=== PATIENT | female | born 1965 | race Caucasian/White ===

== ENCOUNTER 2023-06-11 14:27 | Inpatient (IN) | payer OTHER ==
[~2023-06-11] VITALS: Ht 165.1 cm; Wt 64.4 kg
[2023-06-11] MEDS ORDERED: IOHEXOL-350 100 ML VIAL IV ONE (14:52)
[2023-06-11] MEDS ORDERED: IV NS 0.9% 250 ML IV ONE (14:52)
[2023-06-11] MEDS ORDERED: CT SWABBABLE VALVE TRANS SET 1 EA INFUS.SET MC ONE (14:52)
[2023-06-11 15:10] LABS: BASOPHILS % (AUTO) 0.3 % (0.0-2.0); EOSINOPHILS # (AUTO) 0.4 K/uL (0.0-0.7); EOSINOPHILS % (AUTO) 3.9 % (0.0-6.0); HEMATOCRIT 40 % (33-45); LYMPHOCYTES # (AUTO) 2.5 K/uL (0.8-4.8); LYMPHOCYTES % (AUTO) 26.7 % (20.0-44.0); MEAN CORPUSCULAR HEMOGLOBIN 29 PG (26.0-33.0); MEAN CORPUSCULAR HGB CONC 32 g/dl (31.0-36.0); MEAN CORPUSCULAR VOLUME 89 fL (82-100); MONOCYTES # (AUTO) 0.8 K/uL (0.1-1.30); MONOCYTES % (AUTO) 8.6 % (2.0-12.0); NEUTROPHILS # (AUTO) 5.7 K/uL (1.8-8.9); NEUTROPHILS % (AUTO) 60.5 % (43.0-81.0); PLATELET COUNT (AUTO) 429 K/uL (150-450); RED BLOOD CELL COUNT(AUTO) 4.56 MIL/uL (4.0-5.2); RED CELL DISTRIBUTION WIDTH 13.7 % (11.5-15.0); WHITE BLOOD COUNT (AUTO) 9.5 K/uL (4.3-11.0)
[2023-06-11 15:16] LABS: INR 0.95 (0.91-1.10); PARTIAL THROMBOPLASTIN TIME 30.2 SEC (24.3-34.3); PROTHROMBIN TIME 10.1 SECS (9.2-11.1)
[2023-06-11 15:19] LABS: ALANINE AMINOTRANSFERASE 50 U/L (12-78); ALBUMIN 3.2 g/dL (3.4-5.0); ALKALINE PHOSPHATASE 278 U/L (46-116); ASPARTATE AMINOTRANSFERASE 34 U/L (15-37); BILIRUBIN,DIRECT 0.1 mg/dL (0.0-0.2); BILIRUBIN,TOTAL 0.3 mg/dL (0.2-1.0); CALCIUM, SERUM 9.4 mg/dL (8.5-10.1); CARBON DIOXIDE 27 mmol/L (21-32); CHLORIDE 105 mmol/L (98-107); CREATININE 0.7 mg/dL (0.6-1.3); GLUCOSE 110 mg/dL (74-106); POTASSIUM 4.8 mmol/L (3.5-5.1); SODIUM SERUM 141 mmol/L (136-145); UREA NITROGEN, BLOOD 13 mg/dL (7-18)
[2023-06-11] MEDS ORDERED: POLY17PO4 PO (15:35)
[2023-06-11] MEDS ORDERED: SENN-18 PO (15:35)
[2023-06-11] MEDS ORDERED: ARIP5TAB10 PO (15:35)
[2023-06-11] MEDS ORDERED: OLAN5TAB3 PO (15:35)
[2023-06-11] MEDS ORDERED: MELA5TAB PO (15:35)
[2023-06-11] MEDS ORDERED: OLAN10VI IM (15:35)
[2023-06-11] MEDS ORDERED: MAGN400O6 PO (15:35)
[2023-06-11] MEDS ORDERED: NITR1PAT67 TD (15:35)
[2023-06-11] MEDS ORDERED: FOLI0.8T3 PO (15:35)
[2023-06-11] MEDS ORDERED: THIA100T74 PO (15:35)
[2023-06-11] MEDS ORDERED: TAMS-12 PO (15:35)
[2023-06-11] MEDS ORDERED: ACET-868 PO (15:35)
[2023-06-11] MEDS ORDERED: ENOX40DI SQ (15:35)
[2023-06-11 17:20] LABS: THYROID STIMULATING HORMONE 2.056 uIU/mL (0.358-3.74)
[2023-06-11 19:18] LABS: ACETAMINOPHEN <10 ug/ml (10-30); SALICYLATE 1.6 mg/dL (2.8-20.0)
[2023-06-11 19:27] LABS: ALCOHOL, BLOOD < 3 mg/dL (0-10)
[2023-06-11 19:38] LABS: APPEARANCE,URINE SLIGHTLY CLOUDY (CLEAR); BILIRUBIN,URINE NEGATIVE (NEGATIVE); BLOOD, URINE TRACE-INTA Ery/uL (NEGATIVE); COLOR,URINE YELLOW (YELLOW); KETONES,URINE NEGATIVE (NEGATIVE); LEUKOCYTE ESTERASE ,URINE 3+ (NEGATIVE); NITRITE, URINE NEGATIVE (NEGATIVE); PH,URINE 6.5 (5.0-8.0); PROTEIN,URINE NEGATIVE (NEGATIVE); UGLUCOSE NEGATIVE (NEGATIVE); UROBILINOGEN,URINE 0.2 EU/dL (0.2)
[2023-06-11 19:48] LABS: ADD URINE CULTURE YES; BACTERIA,URINE 1+ /HPF (None Seen)
[2023-06-11 20:30] VITALS: BP 130/76; TEMP 97.7; O2SAT 100
[2023-06-11] MEDS ORDERED: SIMVASTATIN 40 MG TABLET PO SCH (22:00)
[2023-06-11] MEDS ORDERED: CEFTRIAXONE 1GM BAG (ER ONLY) 50 ML IV ONE (22:21)
[2023-06-11] MEDS: CEFTRIAXONE 1 G in IV D5W 50 ML IV SCH (22:37)
[2023-06-11] MEDS: BLOOD SUGAR DIAGNOSTIC 1 EACH STRIP IN SCH (22:55)
[2023-06-12] VITALS: BP 112/91; TEMP 97.6; O2SAT 95
[2023-06-12 05:00] VITALS: BP 126/61; TEMP 99.1; O2SAT 99
[2023-06-12 06:37] LABS: BASOPHILS # (AUTO) 0.1 K/uL (0.0-0.2); BASOPHILS % (AUTO) 1.4 % (0.0-2.0); EOSINOPHILS # (AUTO) 0.4 K/uL (0.0-0.7); HEMATOCRIT 38 % (33-45); HEMOGLOBIN 12.3 g/dL (11.5-14.8); LYMPHOCYTES # (AUTO) 2.1 K/uL (0.8-4.8); LYMPHOCYTES % (AUTO) 27.9 % (20.0-44.0); MEAN CORPUSCULAR HEMOGLOBIN 29 PG (26.0-33.0); MEAN CORPUSCULAR HGB CONC 32 g/dl (31.0-36.0); MEAN CORPUSCULAR VOLUME 89 fL (82-100); MONOCYTES # (AUTO) 0.7 K/uL (0.1-1.30); MONOCYTES % (AUTO) 9.9 % (2.0-12.0); NEUTROPHILS # (AUTO) 4.2 K/uL (1.8-8.9); NEUTROPHILS % (AUTO) 55.8 % (43.0-81.0); PLATELET COUNT (AUTO) 391 K/uL (150-450); RED BLOOD CELL COUNT(AUTO) 4.27 MIL/uL (4.0-5.2); RED CELL DISTRIBUTION WIDTH 13.9 % (11.5-15.0); WHITE BLOOD COUNT (AUTO) 7.5 K/uL (4.3-11.0)
[2023-06-12] MEDS: BLOOD SUGAR DIAGNOSTIC 1 EACH STRIP IN SCH ×4 (06:49→22:27)
[2023-06-12 07:38] LABS: CREATININE 0.6 mg/dL (0.6-1.3); POTASSIUM 3.4 mmol/L (3.5-5.1)
[2023-06-12 08:00] VITALS: BP 113/58; TEMP 97.5; O2SAT 99
[2023-06-12] MEDS: ASPIRIN 81 MG TAB.CHEW PO SCH (09:20)
[2023-06-12] MEDS ORDERED: POTASSIUM CHLORIDE 20 MEQ TAB.PRT.SR PO SCH (11:00)
[2023-06-12 12:00] VITALS: BP 118/71; TEMP 99; O2SAT 96
[2023-06-12 16:00] VITALS: BP 137/75; TEMP 98.4; O2SAT 96
[2023-06-12 20:00] VITALS: BP 117/66; TEMP 98.8; O2SAT 100
[2023-06-12] MEDS: SIMVASTATIN 20 MG TABLET PO SCH (21:29)
[2023-06-12] MEDS: CEFTRIAXONE 1 G in IV D5W 50 ML IV SCH (22:27)
[2023-06-13] VITALS: BP 117/70; TEMP 98.5; O2SAT 99
[2023-06-13 04:00] VITALS: BP 131/63; TEMP 98.2; O2SAT 98
[2023-06-13 04:57] VITALS: BP 130/63; TEMP 98.2
[2023-06-13 05:57] LABS: BASOPHILS # (AUTO) 0.1 K/uL (0.0-0.2); BASOPHILS % (AUTO) 0.6 % (0.0-2.0); EOSINOPHILS # (AUTO) 0.4 K/uL (0.0-0.7); EOSINOPHILS % (AUTO) 3.5 % (0.0-6.0); HEMATOCRIT 40 % (33-45); HEMOGLOBIN 12.9 g/dL (11.5-14.8); LYMPHOCYTES # (AUTO) 1.9 K/uL (0.8-4.8); LYMPHOCYTES % (AUTO) 17.5 % (20.0-44.0); MEAN CORPUSCULAR HEMOGLOBIN 29 PG (26.0-33.0); MEAN CORPUSCULAR HGB CONC 32 g/dl (31.0-36.0); MEAN CORPUSCULAR VOLUME 89 fL (82-100); MONOCYTES % (AUTO) 9.4 % (2.0-12.0); NEUTROPHILS # (AUTO) 7.5 K/uL (1.8-8.9); PLATELET COUNT (AUTO) 389 K/uL (150-450); RED BLOOD CELL COUNT(AUTO) 4.47 MIL/uL (4.0-5.2); RED CELL DISTRIBUTION WIDTH 13.7 % (11.5-15.0); WHITE BLOOD COUNT (AUTO) 10.8 K/uL (4.3-11.0)
[2023-06-13 06:07] LABS: FOLIC ACID > 20.0 ng/mL (>3.0)
[2023-06-13 06:10] LABS: CREATININE 0.7 mg/dL (0.6-1.3); MAGNESIUM 1.9 mg/dL (1.8-2.4); PHOSPHORUS 4.4 mg/dL (2.5-4.9); POTASSIUM 3.4 mmol/L (3.5-5.1)
[2023-06-13] MEDS: BLOOD SUGAR DIAGNOSTIC 1 EACH STRIP IN SCH ×4 (06:37→21:59)
[2023-06-13 07:30] VITALS: BP 127/61; TEMP 98.4; O2SAT 99
[2023-06-13] MEDS ORDERED: ARIPIPRAZOLE 5 MG TABLET PO SCH (09:00)
[2023-06-13] MEDS ORDERED: OLANZAPINE 5 MG TABLET PO SCH (09:00)
[2023-06-13] MEDS: ASPIRIN 81 MG TAB.CHEW PO SCH (09:26)
[2023-06-13] MEDS: FOLIC ACID 1 MG TABLET PO SCH (09:26)
[2023-06-13] MEDS: THIAMINE HCL 100 MG TABLET PO SCH (09:26)
[2023-06-13] MEDS ORDERED: POTASSIUM CHLORIDE 20 MEQ TAB.PRT.SR PO SCH (11:30)
[2023-06-13 16:00] VITALS: BP 111/63; TEMP 98.6; O2SAT 100
[2023-06-13] MEDS ORDERED: ACETAMINOPHEN 325 MG TABLET PO PRN (17:00)
[2023-06-13] MEDS: TAMSULOSIN 0.4 MG CAP.SR.24H PO SCH (17:42)
[2023-06-13 20:00] VITALS: BP 126/61; TEMP 97.3; O2SAT 98
[2023-06-13] MEDS: OLANZAPINE 5 MG TABLET PO SCH (21:59)
[2023-06-13] MEDS: SIMVASTATIN 20 MG TABLET PO SCH (22:00)
[2023-06-13] MEDS: CEFTRIAXONE 1 G in IV D5W 50 ML IV SCH (22:07)
[2023-06-14] VITALS: BP 122/64; TEMP 97.7; O2SAT 97
[2023-06-14 04:00] VITALS: BP 121/68; TEMP 98; O2SAT 100
[2023-06-14 06:34] LABS: BASOPHILS # (AUTO) 0.1 K/uL (0.0-0.2); BASOPHILS % (AUTO) 0.8 % (0.0-2.0); EOSINOPHILS # (AUTO) 0.5 K/uL (0.0-0.7); EOSINOPHILS % (AUTO) 4.1 % (0.0-6.0); HEMATOCRIT 40 % (33-45); LYMPHOCYTES # (AUTO) 1.5 K/uL (0.8-4.8); LYMPHOCYTES % (AUTO) 12.8 % (20.0-44.0); MEAN CORPUSCULAR HEMOGLOBIN 29 PG (26.0-33.0); MEAN CORPUSCULAR HGB CONC 32 g/dl (31.0-36.0); MEAN CORPUSCULAR VOLUME 89 fL (82-100); MONOCYTES # (AUTO) 1.2 K/uL (0.1-1.30); MONOCYTES % (AUTO) 9.9 % (2.0-12.0); NEUTROPHILS # (AUTO) 8.7 K/uL (1.8-8.9); NEUTROPHILS % (AUTO) 72.4 % (43.0-81.0); PLATELET COUNT (AUTO) 369 K/uL (150-450); RED BLOOD CELL COUNT(AUTO) 4.53 MIL/uL (4.0-5.2); RED CELL DISTRIBUTION WIDTH 13.5 % (11.5-15.0); WHITE BLOOD COUNT (AUTO) 12.1 K/uL (4.3-11.0)
[2023-06-14 06:42] LABS: CALCIUM, SERUM 9.2 mg/dL (8.5-10.1); CREATININE 0.6 mg/dL (0.6-1.3); POTASSIUM 3.7 mmol/L (3.5-5.1)
[2023-06-14] MEDS: BLOOD SUGAR DIAGNOSTIC 1 EACH STRIP IN SCH ×4 (07:26→21:43)
[2023-06-14 07:30] VITALS: BP 134/71; TEMP 98.1; O2SAT 98
[2023-06-14] MEDS: ASPIRIN 81 MG TAB.CHEW PO SCH (09:49)
[2023-06-14] MEDS: THIAMINE HCL 100 MG TABLET PO SCH (09:49)
[2023-06-14] MEDS: OLANZAPINE 5 MG TABLET PO SCH ×2 (09:50→21:43)
[2023-06-14] MEDS: FOLIC ACID 1 MG TABLET PO SCH (09:50)
[2023-06-14 16:00] VITALS: BP 150/77; TEMP 99.1; O2SAT 96
[2023-06-14] MEDS ORDERED: LORAZEPAM INJ 2 MG/ML VIAL IV PRN (17:43)
[2023-06-14] MEDS: TAMSULOSIN 0.4 MG CAP.SR.24H PO SCH (17:50)
[2023-06-14 20:00] VITALS: BP 124/67; TEMP 98.4; O2SAT 98
[2023-06-14] MEDS: SIMVASTATIN 20 MG TABLET PO SCH (21:43)
[2023-06-14] MEDS: CEFTRIAXONE 1 G in IV D5W 50 ML IV SCH (21:45)
[2023-06-15] VITALS: BP 125/63; TEMP 98.8; O2SAT 96
[2023-06-15 04:51] VITALS: BP 116/52; TEMP 98.6; O2SAT 98
[2023-06-15] MEDS: BLOOD SUGAR DIAGNOSTIC 1 EACH STRIP IN SCH ×4 (06:36→21:52)
[2023-06-15 07:00] VITALS: BP 119/52; TEMP 99.1; O2SAT 98
[2023-06-15] MEDS: THIAMINE HCL 100 MG TABLET PO SCH (08:53)
[2023-06-15] MEDS: OLANZAPINE 5 MG TABLET PO SCH ×2 (08:53→21:51)
[2023-06-15] MEDS: FOLIC ACID 1 MG TABLET PO SCH (08:53)
[2023-06-15] MEDS: ASPIRIN 81 MG TAB.CHEW PO SCH (08:54)
[2023-06-15 12:00] VITALS: BP 118/60; TEMP 98.4; O2SAT 98
[2023-06-15 16:00] VITALS: BP 144/74; TEMP 98.4; O2SAT 97
[2023-06-15] MEDS: TAMSULOSIN 0.4 MG CAP.SR.24H PO SCH (17:45)
[2023-06-15 20:00] VITALS: BP 118/67; TEMP 97.7; O2SAT 99
[2023-06-15] MEDS: CEFTRIAXONE 1 G in IV D5W 50 ML IV SCH (21:51)
[2023-06-15] MEDS: SIMVASTATIN 20 MG TABLET PO SCH (21:51)
[2023-06-16] VITALS: BP 114/59; TEMP 98.1; O2SAT 98
[2023-06-16 04:00] VITALS: BP 130/60; TEMP 97.7; O2SAT 97
[2023-06-16 07:00] VITALS: BP 121/61; TEMP 98.2; O2SAT 98
[2023-06-16] MEDS: BLOOD SUGAR DIAGNOSTIC 1 EACH STRIP IN SCH ×2 (07:13→12:18)
[2023-06-16] MEDS: ASPIRIN 81 MG TAB.CHEW PO SCH (08:45)
[2023-06-16] MEDS: OLANZAPINE 5 MG TABLET PO SCH (08:45)
[2023-06-16] MEDS: THIAMINE HCL 100 MG TABLET PO SCH (08:45)
[2023-06-16] MEDS: FOLIC ACID 1 MG TABLET PO SCH (08:46)
[2023-06-16 15:07] LABS: METHYLMALONIC ACID 130 nmol/L (0-378)
== END 2023-06-16 15:37 | DRG 347 ==
LOC: ER 14:32 → TELE 18:02
PROVIDERS: ADMIT Nurse Practitioner Acute Care; ATTEND Nurse Practitioner Family
DX: M48.02 Spinal stenosis, cervical region (principal); G92.8 Other toxic encephalopathy; E44.1 Mild protein-calorie malnutrition; G93.1 Anoxic brain damage, not elsewhere classified; D68.69 Other thrombophilia; E88.09 Other disorders of plasma-protein metabolism, not elsewhere classified; F03.92 Unspecified dementia, unspecified severity, with psychotic disturbance; F29 Unspecified psychosis not due to a substance or known physiological condition; N39.0 Urinary tract infection, site not specified; Z74.01 Bed confinement status; Z79.899 Other long term (current) drug therapy; Z86.718 Personal history of other venous thrombosis and embolism; M54.12 Radiculopathy, cervical region; D32.9 Benign neoplasm of meninges, unspecified; Z91.51 Personal history of suicidal behavior; Z68.23 Body mass index [BMI] 23.0-23.9, adult; R53.1 Weakness
CPT/HCPCS: 36415; 70450-TC; 70496-TC; 70498-TC; 71045-TC; 72125-TC; 73110; 80048-TC; 80061-TC; 80076-TC; 81001; 82607-TC; 82962-TC; 83735-TC; 83921; 84100-TC; 84443-TC; 84484-TC; 85025-TC; 85730-TC; 87081-TC; 92507-TC; 92521; 92526; 92611-TC; 97110-TC; 97112-TC; 97116-TC; 97530-TC; 97535-TC; A4223; G0378; G0480; J0696; J2060; J7050; J7060; Q9967